=== PATIENT | male | born 1955 | race African-American/Black ===

== ENCOUNTER 2019-09-13 23:24 | Emergency (ER) | payer OTHER ==
[~2019-09-13] VITALS: Ht 182.9 cm; Wt 84.0 kg
[2019-09-14 00:01] VITALS: BP 182/104
[2019-09-14] MEDS ORDERED: MORPHINE SULFATE 4 MG/ML CPJ (NOT FOR IM USE) IV STA (00:25)
[2019-09-14 01:34] LABS: EOSINOPHILS % 2.9 % (0.0-5.0); HEMATOCRIT. 46.7 % (42.0-52.0); HEMOGLOBIN. 16.2 g/dL (14.0-18.0); MEAN CORPUSCULAR VOLUME 92.2 fL (80.0-94.0); MEAN PLATELET VOLUME 9.7 fl (7.4-10.4); MONOCYTES % 6.6 % (2.0-8.0); NEUTROPHILS % 73.5 % (40.0-76.0); PLATELET 249 x1000/uL (130-400); RED BLOOD CELL COUNT 5.07 mill/uL (4.7-6.1); RED CELL DISTRIBUTION WIDTH 13.6 % (11.6-14.6)
[2019-09-14] MEDS ORDERED: KETOROLAC 30MG/ML VIAL IV ONE (02:00)
== END 2019-09-14 02:20 | disposition home or self-care (01) ==
LOC: ER 23:24
DX: R55 Syncope and collapse (principal); M54.2 Cervicalgia; M54.9 Dorsalgia, unspecified; E11.9 Type 2 diabetes mellitus without complications; I10 Essential (primary) hypertension; V43.52XA Car driver injured in collision with other type car in traffic accident, initial encounter; W22.11XA Striking against or struck by driver side automobile airbag, initial encounter; Y93.89 Activity, other specified; Y92.410 Unspecified street and highway as the place of occurrence of the external cause
CPT/HCPCS: 36415; 70450; 71045; 72125; 85025; 96374; 96375; 99285; J1885; J2270